=== PATIENT | female | born 2000 | race Caucasian/White ===

== ENCOUNTER 2023-05-30 15:58 | Emergency (ER) | payer OTHER ==
[2023-05-30 16:31] VITALS: BP 123/72; O2SAT 98
[2023-05-30 16:53] LABS: BASOPHILS % (AUTO) 0.6 %; EOSINOPHILS % (AUTO) 0.5 %; HCT - HEMATOCRIT 42.8 % (37.0-47.0); HGB - HEMOGLOBIN 14.2 g/dL (12.0-16.0); LYMPHOCYTES # (AUTO) 1.8 10^3/uL (1.5-3.5); LYMPHOCYTES % (AUTO) 27.5 %; MEAN CORPUSCULAR HEMOGLOBIN 31.8 pg (27.0-31.0); MEAN CORPUSCULAR HGB CONC 33.2 g/dL (32.0-36.0); MEAN PLATELET VOLUME 11.4 fL (7.9-10.8); MONOCYTES # (AUTO) 0.5 10^3/uL (0.0-1.0); MONOCYTES % (AUTO) 6.8 %; NEUTROPHILS # (AUTO) 4.2 10^3/uL (1.5-6.6); NEUTROPHILS % (AUTO) 64.3 %; PLT - PLATELET COUNT 220 10^3/uL (130-450); RED BLOOD COUNT 4.46 10^6/uL (4.20-5.40); RED CELL DISTRIBUTION WIDTH 11.9 % (12.0-15.0); WHITE BLOOD COUNT 6.6 x10^3/uL (4.8-10.8)
[2023-05-30 17:11] LABS: ALBUMIN 4.6 g/dL (3.2-5.5); ALBUMIN/GLOBULIN RATIO 2.1 (1.0-2.2); BILIRUBIN,TOTAL 0.4 mg/dL (0.2-1.0); CALCIUM 9.6 mg/dL (8.5-10.3); CREATININE 0.8 mg/dL (0.6-1.3); POTASSIUM 3.9 mmol/L (3.5-4.5); TOTAL PROTEIN 6.8 g/dL (6.4-8.9)
[2023-05-30 17:42] LABS: BILIRUBIN,URINE NEGATIVE (NEGATIVE); GLUCOSE, URINE (UA) NEGATIVE (NEGATIVE); KETONES,URINE (UA) NEGATIVE (NEGATIVE); LEUKOCYTE ESTERASE, URINE NEGATIVE (NEGATIVE); NITRITE,URINE NEGATIVE (NEGATIVE); OCCULT BLOOD,URINE NEGATIVE (NEGATIVE); PROTEIN,URINE NEGATIVE (NEGATIVE); UROBILINOGEN,URINE 0.2 (NORMAL) E.U./dL (NORMAL)
[2023-05-30 17:43] LABS: CLARITY,URINE CLEAR (CLEAR)
[2023-05-30 17:44] LABS: HCG UR QUAL NEGATIVE
--- NOTE | 2023-05-30 18:22 | ED Physician Documentation ---
History of Present Illness - Stated complaint Stated Complaint: ABD PX - Chief complaint Chief Complaint: Abd Pain - Additonal information Additional information: 22-year-old female presents emergency department for evaluation of diarrhea. S he and her partner both got sick about a week ago initially had some vomiting and diarrhea but her partner recovered. Since then she finds anytime she eats she is nauseated and what ever she eats quickly runs through her. She has had no fevers. Diarrhea is not black or bloody. No recent antibiotics or travel. She does report a history of IBS and due to that has been hesitant to try envo-ssj-oiikzar antidiarrheal medications. Review of Systems Constitutional: denies: Fever Cardiac: reports: Reviewed and negative Respiratory: reports: Reviewed and negative GI: reports: Abdominal Pain, Vomiting, Diarrhea. denies: Bloody / black stool : reports: Reviewed and negative Skin: reports: Reviewed and negative PD PAST MEDICAL HISTORY - Present Medications Home Medications: Ambulatory Orders Medication Instructions Recorded Confirmed Ondansetron Odt [Zofran] 4 mg TL Q6H PRN #10 tablet 05/30/23 Sertraline [Zoloft] 100 mg PO DAILY 05/30/23 05/30/23 lamoTRIgine [LaMICtal] 50 mg PO DAILY 05/30/23 05/30/23 - Allergies Allergies/Adverse Reactions: Allergies Allergy/AdvReac Type Severity Reaction Status Date / Time No Known Drug Allergies Allergy Verified 05/30/23 16:27 PD ED PE NORMAL - General General: Alert and oriented X 3, No acute distress, Well developed/nourished - Neck Neck: Supple, no meningeal sign - Cardiac Cardiac: RRR, No murmur, No gallop - Respiratory Respiratory: No respiratory distress, Clear bilaterally - Abdomen Abdomen: Normal bowel sounds, Soft, Non tender - Back Back: No CVA TTP, No spinal TTP - Derm Derm: Warm and dry - Neuro Neuro: Alert and oriented X 3, power lineworker 2-12 intact Eye Opening: Spontaneous Motor: Obeys Commands Verbal: Oriented GCS Score: 15 Results - Vitals Vitals: Vital Signs - 24 hr 05/30/23 16:24 Temperature 37 C Heart Rate 103 H Respiratory 20 Rate Blood Pressure 123/72 O2 Saturation 98 - Labs Labs: Laboratory Tests 05/30/23 05/30/23 05/30/23 16:47 16:47 17:31 WBC 6.6 RBC 4.46 Hgb 14.2 Hct 42.8 MCV 96.0 MCH 31.8 H MCHC 33.2 RDW 11.9 L Plt Count 220 MPV 11.4 H Neut # (Auto) 4.2 Lymph # (Auto) 1.8 [place] # (Auto) 0.5 Eos # (Auto) 0.0 Baso # (Auto) 0.0 Absolute Nucleated RBC 0.00 Nucleated RBC % 0.0 Sodium 140 Potassium 3.9 Chloride 107 Carbon Dioxide 27 Anion Gap 6.0 BUN 11 Creatinine 0.8 Estimated GFR (MDRD) 91 Glucose 104 Calcium 9.6 Total Bilirubin 0.4 AST 14 ALT 18 Alkaline Phosphatase 60 Total Protein 6.8 Albumin 4.6 Globulin 2.2 Albumin/Globulin Ratio 2.1 Lipase 28 Urine Color YELLOW Urine Clarity CLEAR Urine pH 7.0 Ur Specific [place] 1.025 Urine Protein NEGATIVE Urine Glucose (UA) NEGATIVE Urine Ketones NEGATIVE Urine Occult Blood NEGATIVE Urine Nitrite NEGATIVE Urine Bilirubin NEGATIVE Urine Urobilinogen 0.2 (NORMAL) Ur Leukocyte Esterase NEGATIVE Ur Microscopic Review NOT INDICATED Urine Culture Comments NOT INDICATED Urine HCG, Qual NEGATIVE PD Medical Decision Making - ED course Complexity details: reviewed results, re-evaluated patient, d/w patient ED course: This a very well-appearing 22-year-old female who presents emergency department for evaluation of diarrhea that has persisted over the last week after both she and her partner got what they thought was the stomach flu. Anytime she eats or drinks something very quickly thereafter she will have diarrhea that is nonbloody. No melena. On exam no abdominal tenderness was elicited. Her vital signs here without abnormalities noted. Advanced imaging was deferred. Low suspicion for occult surgical abdomen. CBC and electrolytes were also unrevealing. Patient has no C. difficile risk factors. I discussed with the patient Conservative management at home which could include the use of yogurt or lactobacillus and occasional doses of Imodium. I did offer stool testing which she declined at this time. She prefers to try some Zofran, stick to clear liquids for the next 24 to 48 hours and attempt lactobacillus. If that does not improve then she will try Imodium. Usual emergent return precautions were discussed for worsening symptoms. Departure - Departure Disposition: 01 Home, Self Care Clinical Impression: Diarrhea Qualifiers: Diarrhea type: unspecified type Qualified Code(s): R19.7 - Diarrhea, unspecified Condition: Stable Record reviewed to determine appropriate education?: Yes Prescriptions: Ondansetron Odt [Zofran] 4 mg TL Q6H PRN #10 tablet PRN Reason: Nausea / Vomiting Comments: Silvia you have been having diarrhea since you got sick a little more than a week ago. Most diarrhea is benign and self resolving. I do recommend that for the next 24 to 48 hours you eat a clear liquid diet or simple bananas, rice, applesauce and toast. Getting healthy cultures through yogurt or taking lactobacillus can help resolve diarrhea. If that is not improving the symptoms then try a single dose of Imodium. I have also prescribed some Zofran, nausea medicine to the [facility] in [place]. Typically I would expect her symptoms to be getting better over the next 5 to 7 days. If not markedly improving, you have black or bloody output, sudden severe or different abdominal pain or develop fevers and uncontrolled vomiting then please return immediately to the ER for repeat evaluation.
== END 2023-05-30 18:51 | disposition home or self-care (01) ==
LOC: ED 15:58
DX: R19.7 Diarrhea, unspecified (principal)
CPT/HCPCS: 36415; 80053; 81001; 81003; 81025; 83690; 85025; 87086; 99283; 99284

== ENCOUNTER 2023-06-03 13:38 | Emergency (ER) | payer OTHER ==
[2023-06-03 14:12] LABS: BASOPHILS % (AUTO) 0.3 %; EOSINOPHILS % (AUTO) 0.5 %; HCT - HEMATOCRIT 42.8 % (37.0-47.0); HGB - HEMOGLOBIN 14.8 g/dL (12.0-16.0); LYMPHOCYTES # (AUTO) 0.6 10^3/uL (1.5-3.5); LYMPHOCYTES % (AUTO) 9.9 %; MEAN CORPUSCULAR HEMOGLOBIN 32.5 pg (27.0-31.0); MEAN CORPUSCULAR HGB CONC 34.6 g/dL (32.0-36.0); MEAN CORPUSCULAR VOLUME 94.1 fL (81.0-99.0); MEAN PLATELET VOLUME 11.1 fL (7.9-10.8); MONOCYTES # (AUTO) 0.3 10^3/uL (0.0-1.0); MONOCYTES % (AUTO) 4.2 %; NEUTROPHILS # (AUTO) 5.2 10^3/uL (1.5-6.6); NEUTROPHILS % (AUTO) 84.8 %; PLT - PLATELET COUNT 196 10^3/uL (130-450); RED BLOOD COUNT 4.55 10^6/uL (4.20-5.40); RED CELL DISTRIBUTION WIDTH 11.8 % (12.0-15.0); WHITE BLOOD COUNT 6.2 x10^3/uL (4.8-10.8)
--- NOTE | 2023-06-03 14:12 | ED Physician Documentation ---
PD HPI NVD - Stated complaint Stated Complaint: GI,STOMACH PX,N/V - Chief complaint Chief Complaint: Abd Pain - History obtained from History obtained from: Patient - History of Present Illness Timing - onset: How many weeks ago (over 1 week ago) Timing - duration: Weeks (1) Timing - details: Abrupt onset, Still present (she has had lessened nausea and vomiting compared to onset few days. Diarrhea has lessened to some firm at times. Has upper abd and right lower abd pains since yesterday. Feeling lightheaded.) Associated symptoms: Fever, Abdominal pain (cramping diffuse initially.) Contributing factors: No: Sick contact, Bad food Similar symptoms before: Has not had sx before Recently seen: Emergency Dept (4 days ago with these symptoms and Rx Zofran. Was not felt too sick. Pt states still nausea with Zofran but less.) Review of Systems Constitutional: reports: Fever (a week ago, resolved the past 2-3 days.) Nose: denies: Congestion Throat: reports: Sore throat Respiratory: denies: Dyspnea, Cough, Wheezing GI: reports: Abdominal Pain, Nausea, Vomiting, Diarrhea, Bloody / black stool (today, mild red after BM.). denies: Abdominal Swelling : reports: Other (much dimiinished urine output and is dark yellow the past few days.) Skin: denies: Rash, Lesions PD PAST MEDICAL HISTORY - Past Medical History Cardiovascular: None Respiratory: None Neuro: None Endocrine/Autoimmune: None GI: None - Present Medications Home Medications: Ambulatory Orders Medication Instructions Recorded Confirmed Ondansetron Odt [Zofran] 4 mg TL Q6H PRN #10 tablet 05/30/23 06/03/23 Sertraline [Zoloft] 100 mg PO DAILY 05/30/23 06/03/23 lamoTRIgine [LaMICtal] 50 mg PO DAILY 05/30/23 06/03/23 Famotidine [Pepcid] 20 mg PO BID #20 tablet 06/03/23 HYDROcod/ACETAM 5/325 [[place] 5/325] 1 ea PO Q6H PRN #8 tablet 06/03/23 Ondansetron Odt [Zofran] 4 mg TL Q6H PRN #12 tablet 06/03/23 Promethazine [Phenergan] 25 mg PO Q6H PRN #15 tab 06/03/23 - Allergies Allergies/Adverse Reactions: Allergies Allergy/AdvReac Type Severity Reaction Status Date / Time No Known Drug Allergies Allergy Verified 06/03/23 13:42 PD ED PE NORMAL - Vitals Vital signs reviewed: Yes - General General: Alert and oriented X 3, Well developed/nourished - HEENT HEENT: Pharynx benign. No: Moist mucous membranes - Neck Neck: Supple, no meningeal sign, No adenopathy - Cardiac Cardiac: No murmur. No: RRR (tachcyardic) - Respiratory Respiratory: No respiratory distress, Clear bilaterally - Abdomen Abdomen: Normal bowel sounds, Non tender, Non distended, Other (tender in upper abd/epigastric area without guarding. Tender RLQ as well with some local guarding. No percussion nor rebound. ) - Rectal Rectal: Deferred (description of some firmness to stool, with stool out then some red blood separately c/w rectal cause. Deferred rectal for pt sake and low likely of different info. ) - Back Back: No CVA TTP - Derm Derm: Normal color, Warm and dry - Neuro Neuro: Alert and oriented X 3, No motor deficit, Normal speech Results - Vitals Vitals: Vital Signs - 24 hr 06/03/23 06/03/23 13:42 17:54 Temperature 37.2 C Heart Rate 108 H 98 Respiratory 18 16 Rate Blood Pressure 115/70 118/68 O2 Saturation 97 99 Oxygen O2 Source Room air - Labs Labs: Laboratory Tests 06/03/23 06/03/23 06/03/23 13:30 14:07 14:07 WBC 6.2 RBC 4.55 Hgb 14.8 Hct 42.8 MCV 94.1 MCH 32.5 H MCHC 34.6 RDW 11.8 L Plt Count 196 MPV 11.1 H Neut # (Auto) 5.2 Lymph # (Auto) 0.6 L [place] # (Auto) 0.3 Eos # (Auto) 0.0 Baso # (Auto) 0.0 Absolute Nucleated RBC 0.00 Nucleated RBC % 0.0 Sodium 138 Potassium 3.8 Chloride 105 Carbon Dioxide 27 Anion Gap 6.0 BUN 12 Creatinine 0.7 Estimated GFR (MDRD) 106 Glucose 100 Calcium 9.6 Total Bilirubin 0.7 AST 25 ALT 23 Alkaline Phosphatase 67 Total Protein 7.2 Albumin 4.6 Globulin 2.6 Albumin/Globulin Ratio 1.8 Lipase 17 Urine Color DARK YELLOW Urine Clarity CLEAR Urine pH 6.5 Ur Specific [place] >=1.030 H Urine Protein 30 H Urine Glucose (UA) NEGATIVE Urine Ketones 15 H Urine Occult Blood NEGATIVE Urine Nitrite NEGATIVE Urine Bilirubin NEGATIVE Urine Urobilinogen 1 (NORMAL) Ur Leukocyte Esterase NEGATIVE Urine RBC 0-5 Urine WBC 0-3 Ur Squamous Epith Cells MOD Squamous H Urine Bacteria Few Urine Mucus Moderate Strands Ur Microscopic Review INDICATED Urine Culture Comments NOT INDICATED Urine HCG, Qual NEGATIVE - Rads (name of study) abd/pelvic CT Relevant Findings:: Prelim report reviewed (patchy areas of thickened small and large intestinal wall c/w GE. Appendix seem and normal. ), EMP independent interpretation of test PD Medical Decision Making - ED course Complexity details: re-evaluated patient (improved generally with IV fluids and initialy meds toradol, zofran, famotidine. Still with some cramps after. Given Dilaudid 0.5 mg IV with less pain but caused nausea with some vomiting. Given Inapsine for this as hed had 2 doses Zofran earlier. Feeling improved and with sips of water, felt ok D/c), considered differential (GE symptoms for over a week with no fevers, URI symptoms now, but still abd cramping, poor appetitie, nausea. Had diarrhea but this is firmning. Pain in epigastric area and also now at RLQ area. Concern would be for triggered appendicitis from viral GE or other processes. She does seem dehydrated.), d/w patient Reviewed Lab Results: white count was normal range. Blood count not anemic. Her electrolytes were within normal range. glucose not too low. UA iwthout infection and neg test. Labs were good. Her symptoms and exam were concerning for potentil appendicitis and gastritis among other secondary acute porcesses. Or may just be continue viral GE symptoms at a week out. Presume some element of gastritis at least, so gave some Famotidine. Deferred rectal exam with her description of some firmer stools (diarrhea earlier in week) and some pushing for BM, had stool then some red blood besides the stool. Sounds fissure/ irritated/ hemorrhoidal per pt and her relatively recent GE/diarrhea. Departure - Departure Disposition: 01 Home, Self Care Clinical Impression: Gastroenteritis, acute, Nausea and vomiting, Abdominal cramping Condition: Stable Record reviewed to determine appropriate education?: Yes Instructions: ED Gastroenteritis Viral Prescriptions: HYDROcod/ACETAM 5/325 [[place] 5/325] 1 ea PO Q6H PRN #8 tablet PRN Reason: Pain Famotidine [Pepcid] 20 mg PO BID #20 tablet Promethazine [Phenergan] 25 mg PO Q6H PRN #15 tab PRN Reason: Nausea / Vomiting Ondansetron Odt [Zofran] 4 mg TL Q6H PRN #12 tablet PRN Reason: Nausea / Vomiting Comments: Small frequent fluids and bland food. No doubt your stomach is irritated from the illness and persistent vomiting. You likely have some element of gastritis which is irritation of the stomach separate from the illness. I would suggest famotidine acid reducing medicine twice daily for the next 7 to 10 days to help improve stomach healing. Your CT scan showed still segments of inflammation in the large and small intestine consistent with the gastroenteritis or viral "stomach flu". No signs of a focal bacterial infection per se. Importantly your appendix appears normal and had not gotten triggered or inflamed from this. I presume they are still going to be a bit of time for resolution more of the intestinal inflammation. Again's bland and gentle food during that time. At this point I would avoid antidiarrhea medicines unless you get a lot more diarrhea. The blood after your stool was likely from irritation or even poss ibly hemorrhoids down around the rectum area related to the recent diarrhea. This should resolve over the next few days. Recheck if persistent or increased. Continue with ondansetron/Zofran if needed for nausea. I wrote for another called promethazine if the Zofran itself is not working well enough. Tylenol every 4-6 hours as needed for pains. Avoid anti-inflammatory such as ibuprofen or naproxen as they can further irritate your stomach. For cramps and pains if you do need a stronger pain medicine, I wrote a prescription for you hydrocodone tablets. This can also lead to constipation. I sent your prescriptions to your preferred pharmacy. Recheck if not fully improved over the next 2-3 more days and return if worse. I am prescribing a short course of narcotic pain medication for you. These are potentially dangerous and addictive medications that should be used carefully. These medications may constipate you. Take an ibrs-fak-ulwhjaw stool softener such as docusate twice daily with plenty of water while taking these medications. If you go 24 hours without a bowel movement, take bmtg-tev-mlrbukw MiraLAX, per package instructions. Do not drink or drive while taking these medications. If you received narcotic or sedating medications while in the emergency department do not drive for 24 hours. Store this medication in a safe, secure place and out of reach of children. It is a violation of federal law to give or sell this medication to another person or to use in a manner other than prescribed. The ED will not refill narcotic prescriptions, including prescriptions lost or stolen. You can dispose of unwanted medications at the [facility]'s office or at several pharmacies such as [facility]. Forms: PCP List Discharge Date/Time: 06/03/23 18:24
[2023-06-03 14:26] LABS: ALBUMIN 4.6 g/dL (3.2-5.5); ALBUMIN/GLOBULIN RATIO 1.8 (1.0-2.2); BILIRUBIN,TOTAL 0.7 mg/dL (0.2-1.0); CALCIUM 9.6 mg/dL (8.5-10.3); CREATININE 0.7 mg/dL (0.6-1.3); POTASSIUM 3.8 mmol/L (3.5-4.5); TOTAL PROTEIN 7.2 g/dL (6.4-8.9)
[2023-06-03 14:32] LABS: GLUCOSE, URINE (UA) NEGATIVE (NEGATIVE); KETONES,URINE (UA) 15 mg/dL (NEGATIVE); LEUKOCYTE ESTERASE, URINE NEGATIVE (NEGATIVE); NITRITE,URINE NEGATIVE (NEGATIVE); OCCULT BLOOD,URINE NEGATIVE (NEGATIVE); PH,URINE 6.5 PH (5.0-7.5); PROTEIN,URINE 30 mg/dL (NEGATIVE); UROBILINOGEN,URINE 1 (NORMAL) E.U./dL (NORMAL)
[2023-06-03 14:38] LABS: BILIRUBIN,URINE NEGATIVE (NEGATIVE); CLARITY,URINE CLEAR (CLEAR); HCG UR QUAL NEGATIVE; ICTOTEST,URINE NEGATIVE
[2023-06-03] MEDS ORDERED: SODIUM CHLORIDE 0.9% 1,000 ML IV STA ×3 (14:42→17:24)
[2023-06-03 14:43] LABS: BACTERIA,URINE Few /HPF (None Seen); MUCUS,URINE Moderate Strands; RBC,URINE 0-5 /HPF (0-5); SQUAMOUS EPITHELIAL CELL,UR MOD Squamous (<= Few); WBC,URINE 0-3 /HPF (0-5)
[2023-06-03] MEDS ORDERED: ONDANSETRON 4 MG/2 ML VIAL IVP STA ×2 (14:43→16:27)
[2023-06-03] MEDS ORDERED: KETOROLAC 15 MG/ML VIAL IVP STA (14:43)
[2023-06-03] MEDS ORDERED: FAMOTIDINE 20 MG/2 ML VIAL IVP STA (14:43)
[2023-06-03] MEDS ORDERED: HYDROmorphone 0.5 MG/0.5 ML SYRINGE IVP STA (16:27)
--- NOTE | 2023-06-03 16:28 | CT Report ---
PROCEDURE: ABDOMEN/PELVIS W INDICATIONS: V/D x 1 wk; now lower right abd pain CONTRAST: 100mL Omni 300 TECHNIQUE: After the administration of intravenous contrast, 5 mm thick sections acquired from the diaphragms to the symphysis. 5 mm thick coronal and sagittal reformats were acquired. For radiation dose reducti on, the following was used: automated exposure control, adjustment of mA and/or kV according to markell ent size. COMPARISON: None FINDINGS: Image quality: Excellent. Lung bases and heart: Unremarkable. Liver: No solid mass. Gallbladder and biliary tree: Gallbladder is mildly distended. No biliary ductal dilatation is presen t. Spleen: No splenomegaly. Pancreas: No pancreatic ductal dilation. Adrenals: No adrenal nodule. Kidneys and ureters: No hydronephrosis. No renal cystic lesion which requires follow up. No solid mas s. Bowel and peritoneum: No bowel distension. No pathologic free fluid. No pneumoperitoneum. Multiple fl uid-filled small and large bowel loops are present. Visualized portions of the appendix are within no rmal limits. Scattered mild regions of small and large bowel thickening within the pelvis and lower a bdomen. Lymph nodes: No central or retroperitoneal adenopathy. Vessels: No infrarenal aortic aneurysm. PELVIS Reproductive organs: Unremarkable. Bladder: Urinary bladder is decompressed. Pelvic lymph nodes: No pelvic adenopathy by size criteria. Bones: No aggressive osseous abnormality. Other: No significant ventral or inguinal hernia. IMPRESSION: 1. Findings suggestive of gastroenteritis. 2. Normal appendix. Reviewed by: Mannie Haas MD on 06/03/2023 4:27 PM PDT Approved by: Mannie Haas MD on 06/03/2023 4:27 PM PDT Station ID: [id number]
[2023-06-03] MEDS ORDERED: PROCHLORPERAZINE 10 MG/2 ML VIAL IVP STA (17:23)
[2023-06-03 17:58] VITALS: BP 118/68; O2SAT 99
[2023-06-03] MEDS ORDERED: iohexoL-300 100 ML VIAL IVP ONE (19:38)
== END 2023-06-03 18:24 | disposition home or self-care (01) ==
LOC: ED 13:38
DX: K52.9 Noninfective gastroenteritis and colitis, unspecified (principal); R11.2 Nausea with vomiting, unspecified; R10.13 Epigastric pain; R10.31 Right lower quadrant pain; Z79.899 Other long term (current) drug therapy
CPT/HCPCS: 36415; 74177; 80053; 81001; 81025; 83690; 85025; 96361; 96374; 96375; 99284; 99285; J1170; Q9967; 81003; 87086

== ENCOUNTER 2023-06-21 12:57 | Emergency (ER) | payer OTHER ==
[2023-06-21 13:19] VITALS: BP 140/80; O2SAT 99
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
== END 2023-06-21 15:32 | disposition home or self-care (01) ==
LOC: ED 12:57
DX: Z63.0 Problems in relationship with spouse or partner (principal); R41.82 Altered mental status, unspecified
CPT/HCPCS: 99283

== ENCOUNTER 2023-06-24 11:22 | Outpatient (CLI) | payer OTHER | END 2023-06-24 23:59 | disposition EMS.NT | LOC: EMS 11:22 | DX: Z03.89 Encounter for observation for other suspected diseases and conditions ruled out (principal) ==

== ENCOUNTER 2023-07-20 14:36 | Outpatient (CLI) | payer OTHER | END 2023-07-20 23:59 | disposition EMS.NT | LOC: EMS 14:36 | DX: M54.2 Cervicalgia (principal); V47.5XXA Car driver injured in collision with fixed or stationary object in traffic accident, initial encounter; Y92.413 State road as the place of occurrence of the external cause ==